=== PATIENT | female | born 1960 | race Caucasian/White ===

== ENCOUNTER → 2019-08-20 08:09 | Day surgery (SDC) | payer BC ==
[~2019-08-20 08:09] MED LIST: Acetaminophen IV 1GM/100ML * 100 ML ONE; Buffered Lidocaine 1% SYRIN* 1 ML/SYRINGE INTRADERM ONE; Dexamethasone IV* 4 MG/ML 1 ML (4 MG) ONE; HYDROmorphone INJ1* 1 MG/ML SYRINGE IV PRN; HYDROmorphone INJ1* 1 MG/ML SYRINGE ONE; Ibuprofen TAB* 600 MG PO PRN; Ketorolac INJ* 30 MG/ML 1 ML VIAL ONE; Lactated Ringers 1000 ML Bag* 1,000 ML IV SCH; Metoclopramide IV* 5 MG/ML 2 ML VIAL IV PRN; Naloxone* 0.4 MG/ML 1 ML VIAL IV PRN; Ondansetron INJ* 2 MG/ML VIAL IV PRN; Ondansetron INJ* 2 MG/ML VIAL ONE; Propofol* 10 MG/ML 20 ML BTL ONE
[2019-08-20 13:46] VITALS: BP 136/82
--- NOTE | 2019-08-21 03:49 | OP ---
DATE OF OPERATION: 08/20/19 - [facility] DATE OF : 64 SURGEON: Dr. Disla. ANESTHESIOLOGIST: Dr. White. ANESTHESIA: General endotracheal anesthesia. PRE-OP DIAGNOSIS: Post-menopausal bleeding and endometrial polyp on office endometrial bypass. POST-OP DIAGNOSES: Post-menopausal bleeding and endometrial polyp on office endometrial bypass. OPERATIVE PROCEDURE: Dilation, hysteroscopy, MyoSure, polypectomy, curettage. ESTIMATED BLOOD LOSS: Minimal, less than 20 cc. FINDINGS: Midline cervix. Small midline mobile uterus. The uterus sounded to 7. There was a small polyp near the right tubal ostia and another small polyp at the junction of the internal os towards the right. Otherwise, the endometrium appeared atrophic. COMPLICATIONS: None. COUNT: Sponge, lap and needle counts were correct x2. CONDITION: The patient was brought to the recovery room awake and in stable condition. DESCRIPTION OF PROCEDURE: The patient was brought to the operating room where general anesthesia was found to be adequate, the patient was prepped and draped in the usual sterile fashion in the dorsal lithotomy position. Time-out was performed. Exam under anesthesia was performed with the above findings noted. The weighted speculum was placed in the vagina. The anterior lip of the cervix was grasped with a single-tooth tenaculum and the cervix was gently and easily dilated using the graduated Gonsalez dilators. The MyoSure was introduced. Small polyp was seen at the location of the right tubal ostia and another small polyp seen at the level of the internal os on the right. Both of the polyps were removed in their entirety using MyoSure Reach. The curettage was performed. Endometrial curettings were sent with the polyps and 1 specimen to pathology. The single-tooth tenaculum was removed from the cervix, excellent hemostasis was noted and the patient was brought to recovery room awake and in stable condition. [id number]/[facility] #: [id number] [id number]
== END | disposition home or self-care (01) ==
LOC: OR 08:09
PROVIDERS: ATTEND Obstetrics & Gynecology
DX: N84.0 Polyp of corpus uteri (principal); N95.0 Postmenopausal bleeding; M54.16 Radiculopathy, lumbar region; Z90.721 Acquired absence of ovaries, unilateral
CPT/HCPCS: 88305; J1100; J1170; J1885; J2405; J2704